=== PATIENT | female | born 1985 | race Caucasian/White ===

== ENCOUNTER 2021-12-10 22:03 | Inpatient (IN) | payer OTHER, SELFPAY ==
[2021-12-10 22:25] VITALS: BMI 31.4
[2021-12-10 22:26] VITALS: BP 156/78; PULSE 62; RESP 18; TEMP 36.7; O2SAT 62
[2021-12-10] MEDS: Nicotine Polacrilex 2 MG GUM BUCCAL (23:46)
[2021-12-11] MEDS: hydrOXYzine HCL 25 MG TABLET PO (00:25)
[2021-12-11] MEDS: Ibuprofen 600 MG TABLET PO (00:25)
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
--- NOTE | 2021-12-11 06:02 | PC.NURSE ---
Pt signed 3 day notice, up Wed. 12/15. Verbalized understanding of document.
[2021-12-11 08:34] LABS: Estimated Average Glucose 100 mg/dL; Hemoglobin A1c % 5.1 %
[2021-12-11 08:35] LABS: Cholesterol 219 mg/dL; HDL Cholesterol 54 mg/dL; LDL Cholesterol Calculated 141 mg/dl; Magnesium 2.2 mg/dL (1.6-2.6); Triglycerides 124 mg/dL
[2021-12-11 08:58] LABS: Free T4 (Free Thyroxine) 0.97 ng/dL (0.71-1.85); Thyroid Stimulating Hormone 1.66 uIU/mL (0.32-4.0)
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
[2021-12-11] MEDS: Nicotine 21 MG PATCH.TD24 TRANSDERMA (09:05)
[2021-12-11 09:06] VITALS: BP 99/56; PULSE 55; RESP 16; TEMP 36.6; O2SAT 98
[2021-12-11 10:37] LABS: Folate 14.1 ng/mL (> or = 4.0); Vitamin B12 475 pg/mL (200-900)
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
[2021-12-11] MEDS: Nicotine Polacrilex 2 MG GUM BUCCAL ×2 (14:01→21:33)
[2021-12-11 23:07] VITALS: BP 141/82; PULSE 77; RESP 16; TEMP 36.6; O2SAT 99
[2021-12-12] MEDS: Nicotine 21 MG PATCH.TD24 TRANSDERMA (09:28)
[2021-12-12 09:33] VITALS: BP 111/58; PULSE 64; RESP 16; TEMP 36.8; O2SAT 99
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
[2021-12-12] MEDS: Ibuprofen 600 MG TABLET PO (13:53)
[2021-12-12] MEDS: Nicotine Polacrilex 2 MG GUM BUCCAL ×2 (18:17→20:32)
[2021-12-12 20:30] VITALS: BP 145/88; PULSE 100; RESP 18; TEMP 36.4; O2SAT 94
[2021-12-13 06:00] VITALS: BP 129/60; PULSE 62; RESP 16; TEMP 36.6; O2SAT 97
[2021-12-13] MEDS: Nicotine 21 MG PATCH.TD24 TRANSDERMA (09:22)
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
[2021-12-13] MEDS: Nicotine Polacrilex 2 MG GUM BUCCAL (18:15)
[2021-12-14 06:00] VITALS: BP 121/64; PULSE 63; RESP 16; TEMP 36.6; O2SAT 98
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
[2021-12-14] MEDS: Nicotine 21 MG PATCH.TD24 TRANSDERMA (09:09)
--- OUTSIDE RECORDS SUMMARY | 2021-12-22 13:56 | XMS_ITS | Continuity of Care Document ---
:1985 Author Organization [facility] ic Address [address] [place] [id number]- Care Team Providers Name Role Phone Maryann Gonzáles MD Primary Care Physician Encounter [facility] Date(s): 01/07/21 - 02/06/[address] [id number] Allergies, Adverse Reactions, Alerts Substance Reaction Severity Status NKA Active Immunizations Given and Recorded Vaccine Date Status Refusal Reason Measles/Mumps/Rubella Virus Vaccine1 12/17/18 Given tetanus/diphtheria/pertussis, acel(Tdap) 09/20/14 Given Varivax (oldterm)2 06/22/09 Given Varicella Virus Vaccine3 04/07/09 Given Tet/Diphth/Acel, Pertussis (oldterm)4 01/28/09 Given FluLaval (oldterm) 01/26/09 Given tetanus-diphtheria toxoids (Td)5 01/26/09 Given 1Result Comment: [facility] [id number] Note: varicella #23Admin Note: varivax #14 Admin Note: INFO SHEET GIVEN GIVEN W/O [id number] Note: [employer] Medications Depo-Provera = 400 mg, Intramuscular, every 3 months, 0 Refills, Maintenance, 10/12/18 10:52:37 EDT Start Date: 10/12/18 Status: Ordered Problem List Condition Effective Dates Status Health Status Informant Family history of diabetes mellitus Active type II(Confirmed) Social History Social History Type Response Smoking Status 5-9 cigarettes (between 1/4 to 1/2 pack)/day in last 30 days; Other: 1/4 ppd now. 1/2 ppd since age 18; entered on: 10/12/18 Sex
--- OUTSIDE RECORDS SUMMARY | 2021-12-22 13:56 | XMS_ITS | Continuity of Care Document ---
:1985 Author Organization [facility] Address [address] [place] [address]- Care Team Providers Name Role Phone Eliecer ESPINOZA, Maryann Caballero Primary Care Physician Encounter [facility] Date(s): 08/18/21 - 09/17/21 [facility] [address] [place], [place] [address] Allergies, Adverse Reactions, Alerts No Known Allergies Immunizations Given and Recorded Vaccine Date Status Refusal Reason Measles/Mumps/Rubella Virus Vaccine1 12/17/18 Given tetanus/diphtheria/pertussis, acel(Tdap) 09/20/14 Given Varivax (oldterm)2 06/22/09 Given Varicella Virus Vaccine3 04/07/09 Given Tet/Diphth/Acel, Pertussis (oldterm)4 01/28/09 Given FluLaval (oldterm) 01/26/09 Given tetanus-diphtheria toxoids (Td)5 01/26/09 Given 1Result Comment: [facility] [id number] Note: varicella #23Admin Note: varivax #14 Admin Note: INFO SHEET GIVEN GIVEN W/O [id number] Note: [employer] Medications Depo-Provera = 400 [...]
--- OUTSIDE RECORDS SUMMARY | 2021-12-22 13:56 | XMS_ITS | Continuity of Care Document ---
:1985 Author Organization [facility] Address [address] [place] [address]- Care Team Providers Name Role Phone Maryann Gonzáles MD Primary Care Physician Encounter [facility] Date(s): 12/10/21 - 12/10/[address] [address]- Encounter Diagnosis Wrist laceration (Final) - 12/10/21 Suicidal ideation (Final) - 12/10/21 Self-inflicted laceration of left wrist (Final) - 12/10/21 Discharge Disposition: Transfer to [facility] Facility Attending Physician: Jaky Norris MD Admitting Physician: Jaky Norris MD Referring Physician: Not on Staff, Referring MD Allergies, Adverse Reactions, Alerts Substance Reaction Severity Status penicillins Active Immunizations Given and Recorded Vaccine Date Status Refusal Reason tetanus/diphtheria/pertussis, acel(Tdap) 12/10/21 Given tetanus/diphtheria/pertussis, acel(Tdap) 09/20/14 Given Measles/Mumps/Rubella Virus Vaccine1 12/17/18 Given Varivax (oldterm)2 06/22/09 Given Varicella Virus Vaccine3 04/07/09 Given Tet/Diphth/Acel, Pertussis (oldterm)4 01/28/09 Given FluLaval (oldterm) 01/26/09 Given tetanus-diphtheria toxoids (Td)5 01/26/09 Given 1Result Comment: [facility] [id number] Note: varicella #23Admin Note: varivax #14 Admin Note: INFO SHEET GIVEN GIVEN W/O [id number] Note: [employer] Medications Depo-Provera = 400 mg, Intramuscular, every 3 months, 0 Refills, Maintenance, 10/12/18 10:52:37 EDT Start Date: 10/12/18 Status: Ordered Problem List Condition Effective Dates Status Health Status Informant Family history of diabetes mellitus Active type II(Confirmed) Vital Signs Most recent to oldest [Reference Range]: 1 2 Oxygen Saturation [94-100 %] 98 % 97 % (12/10/21 3:23 PM) (12/10/21 1:48 AM) Pulse Rate [55-90 bpm] 59 bpm 100 bpm (12/10/21 3:23 PM) *H* (12/10/21 1:48 AM) Blood Pressure [90-138/55-84 mm Hg] 136/83 mm Hg 133/ 79 mm Hg (12/10/21 3:23 PM) (12/10/21 1:48 AM) Respiratory Rate [16-30 br/min] 16 br/min 18 br/mi n (12/10/21 3:23 PM) (12/10/21 1:48 AM) Temperature [96.8-100.4 DegF] 98.5 DegF (12/10/21 3:23 PM) Mode of Delivery (Oxygen) Room air Room air (12/10/21 3:23 PM) (12/10/21 1:48 AM) Blood pressure sites Arm, right Leg, left (12/10/21 3:23 PM) (12/10/21 1:48 AM) Temperature Route Oral (12/10/21 3:23 PM) Social History Social History Type Response Smoking Status 5-9 cigarettes (between 1/4 to 1/2 pack)/day in last 30 days; Other: 1/4 ppd now. 1/2 ppd since age 18; entered on: 10/12/18 Sex Care Team PersonnelName: Eliecer ESPINOZA, Maryann Caballero Address: [address] [place] [address] Adult [facility] [place], [place] [address]
== END 2021-12-14 11:33 | disposition home or self-care (01) | DRG 754 ==
PROVIDERS: Registered Nurse; Admitting Provider Psychiatry & Neurology Psychiatry; PCP Internal Medicine; Visit Provider Psychiatry & Neurology Psychiatry
DX: F32.9 Major depressive disorder, single episode, unspecified (principal); R45.851 Suicidal ideations; F17.210 Nicotine dependence, cigarettes, uncomplicated; Z71.6 Tobacco abuse counseling; Z91.51 Personal history of suicidal behavior
CPT/HCPCS: 36415; 80061; 82607; 82746; 83036; 83735; 84439; 84443